=== PATIENT | male | born 1960 | race Caucasian/White ===

== ENCOUNTER 2021-04-23 07:29 | Outpatient (CLI) | payer OTHER, SELFPAY ==
--- NOTE | 2021-04-23 07:31 | US_ITS ---
STUDY: ABDOMINAL ULTRASOUND REASON FOR EXAM: Male, 61 years old. SPLEEN AND LIVER . Thrombocytopenia. TECHNIQUE: Transabdominal ultrasound was performed with real-time and static julio scale imaging. TECHNICAL QUALITY: Adequate. COMPARISON: None. FINDINGS: Liver: The liver measures 15.6 cm. There is increased echogenicity consistent with fatty infiltration. The bile ducts are within normal limits. There is hepatic color flow. The direction of portal flow is hepatopetal. There is a 2 cm x 2 cm x 1.7 cm cyst in the medial right lobe of the liver. There is also evidence of a 1.6 cm x 1.4 cm x 1.1 cm cyst. Gallbladder: Normal distended gallbladder. The gallbladder wall measures 1.3 mm. There is a negative sonographic Gallegos''s sign. There is no pericholecystic fluid. There are no gallstones. Common Bile Duct (C.B.D.): The common bile duct measures 2.5 mm. Pancreas: There is nonvisualization of the pancreas due to overlying bowel gas. Spleen: Normal size of the spleen. The spleen measures 11.1 cm x 5.5 cm x 3.7 cm. Right Kidney: Normal size of the right kidney. The right kidney measures 12 cm x 5.6 x 5.7 cm. Normal renal cortex. The right cortex measures 2 cm. There is no demonstrated renal mass or cyst. There is no right hydronephrosis. Left Kidney: Normal size of the left kidney. The left kidney measures 12.7 cm x 5.2 cm x 6.2 cm. Normal renal cortex. The left cortex measures 1.8 cm. There is no demonstrated renal mass or cyst. There is no left hydronephrosis. Aorta: Unremarkable I.V.C.: The IVC is patent. There is no ascites. US/Abdomen Complete IMPRESSION: 2 cysts are seen in the medial aspect of the right lobe of liver. Electronically Signed: Nathen Tomlin MD at 12:20 EST ,
== END 2021-04-23 23:59 | disposition home or self-care (01) ==
PROVIDERS: PCP Physician Assistant Medical; Referring Provider Internal Medicine Medical Oncology; Visit Provider Internal Medicine Medical Oncology
DX: D69.6 Thrombocytopenia, unspecified (principal); K76.89 Other specified diseases of liver
CPT/HCPCS: 76700